=== PATIENT | female | born 1970 | race Caucasian/White ===

== ENCOUNTER 2017-02-17 07:50 | Inpatient (IN) | payer BC, OTHER ==
[~2017-02-17] VITALS: Ht 162.6 cm; Wt 63.5 kg
[2017-02-17 22:57] LABS: *URINE HCG, QUAL NEGATIVE (NEGATIVE)
[2017-02-17 23:00] LABS: *AMPHETAMINE, URINE NEGATIVE (NEGATIVE); *BARBITURATE, URINE NEGATIVE (NEGATIVE); *CANNABINOID, URINE NEGATIVE (NEGATIVE); *COCCAINE, URINE NEGATIVE (NEGATIVE); *OPIATE, URINE NEGATIVE (NEGATIVE); *PHENCYCLIDINE SCREEN,URINE NEGATIVE (NEGATIVE)
[2017-02-17] MEDS ORDERED: ONDANSETRON ODT 4 MG TAB.RAPDIS SL PRN (23:45)
[2017-02-17] MEDS ORDERED: LORAZEPAM 1 MG TABLET PO PRN ×2 (23:45)
[2017-02-17] MEDS ORDERED: MAGNESIUM HYDROXIDE 30 ML LIQUID UDC PO PRN (23:45)
[2017-02-17] MEDS ORDERED: DICYCLOMINE HCL 20 MG TABLET PO PRN (23:45)
[2017-02-17] MEDS ORDERED: THIAMINE HCL 200 MG/2 ML VIAL IM ONE (23:45)
[2017-02-17] MEDS ORDERED: MAG HYDROX/AL HYDROX/SIMETH 30 ML LIQUID UDC PO PRN (23:45)
[2017-02-17] MEDS ORDERED: IBUPROFEN 400 MG TABLET PO PRN (23:45)
[2017-02-17] MEDS ORDERED: LORAZEPAM 2 MG/1 ML VIAL IM PRN (23:45)
[2017-02-17] MEDS ORDERED: MIRALAX 17 GM POWD.PACK PO PRN (23:45)
[2017-02-17] MEDS ORDERED: LOPERAMIDE HCL 2 MG CAPSULE PO PRN ×2 (23:45)
[2017-02-17] MEDS ORDERED: HYDROXYZINE PAMOATE 25 MG CAPSULE PO PRN (23:45)
[2017-02-17] MEDS ORDERED: ACETAMINOPHEN 325 MG TABLET PO PRN (23:45)
[2017-02-17] MEDS ORDERED: PROMETHAZINE HCL 25 MG/1 ML VIAL IM PRN (23:45)
--- NOTE | 2017-02-17 23:45 | NUR ---
ADMISSION NOTE Pt arrived ambulatory to the [facility] 3rd floor (accompanied by [facility] staff) at approximately 2215. Pt is a 46 y/o female ( born on 1970) being admitted for ETOH dependence. Pt has NKA but reported a PMH of Genital Herpes, gall bladder removal, hysterectomy, Lymph node dissection (lateral side of right breast). Pt is and reported having three children. Pt reported "I completed high school. 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 Pt didn't arrive with any medications and denies taking any at home. Pt was then asked about her substance use history including; what substance (s) she uses, the frequency, dose, route, last use, and last amount used. Pt responded " I've been drinking for the past 2 years. I don't use anything else. It started when my kids went off to college. I've just been lonely. I prefer Vodka and I usually drink a pint 4 times a week. [place] the airport before [place] came here (02/17/17). I had probably half a pint of Vodka." Pt was then asked about her treatment history. Pt stated "This is my first real detox. When I was [place] I got a DUI and I had to do a breathalyzer twice a day for one year. That was from December 2015 up until December of this year. Since then I've been binging." Pt's UA was positive for benzodiazepines. Pt stated " I had a doctor's appointment for a cough that ended up being a cold. They gave me amoxicillin and at the time I was anxious so they gave me Ativan, but that was a week ago. I didn't think it would still show up in my urine." Upon assessment pt is a/o x 4 with no changes in LOC. Pt's skin is dry and intact. Pt's breathing is even and unlabored. No SOB noted or reported. Lung auscultations clear in all lobes. PERRLA noted. Hand machine stripper cutter strong bilaterally. Skin turgor indicates adequate hydration. Bowel sounds active in all four quadrants. Abdomen soft and non distended. Pt reported having a bowel movement today (02/17/17). Flatulence is present. Pt denies any pain/discomfort at this time. Pt is encouraged to notify staff of any changes in condition or of any concerns. Pt verbalized an understanding. Vital Signs: BP: 131/94 P:108 T: 98.0 R:160 Pain: 0/10 Oxygen Saturation: 98% CIWA: 2. All safety measures in place; side rails up x 2, bed locked and in low position, and call light within reach. Will continue to monitor.
[2017-02-17] MEDS ORDERED: diphenhydrAMINE 50 MG CAPSULE ONE (23:48)
[2017-02-17] MEDS ORDERED: HYDROXYZINE PAMOATE 25 MG CAPSULE ONE (23:55)
[2017-02-18] VITALS: BP 131/94
[2017-02-18] MEDS: diphenhydrAMINE 50 MG CAPSULE PO PRN ×2 (00:12→21:42)
--- NOTE | 2017-02-18 00:12 | NUR ---
VISTARIL AND BENADRYL PRN ADMINISTRATION Pt stated " Do you think I can get something to help me relax and sleep? I haven't been sleeping very well lately." Vistaril 50 mg PO PRN and Benadryl 50 mg PO PRN was given. Pt was encouraged to notify staff of any changes in condition or of any concerns. Pt verbalized an understanding. All safety measures in place. Will monitor for effectiveness.
--- NOTE | 2017-02-18 01:00 | NUR ---
VISTARIL AND BENADRYL PRN REASSESSMENT Pt is asleep in bed with no signs of discomfort/distress noted. Pt's breathing is even and unlabored. Respirations are 14 breaths per minute. PRNs effective. All safety measures in place. Will continue to monitor.
[2017-02-18 04:00] VITALS: BP 112/74
--- NOTE | 2017-02-18 07:18 | NUR ---
END OF SHIFT NOTE Pt is a 46 y/o female admitted for ETOH dependence. Pt has NKA but reported a PMH of Genital Herpes, gall bladder removal, hysterectomy, and lymph node dissection (lateral side of right breast).Pt is not on a taper at this time, but has PRN medications available for any discomfort/distress. Pt received Vistaril 50 mg and Benadryl 50 mg PO PRN during the shift. Pt slept for a total of 6 hours. Last CIWA: 0 (0400). All safety measures in place; side rails up x 2, bed locked and in low position, and call light within reach. Endorsed to the oncoming nurse.
[2017-02-18] MEDS ORDERED: ONDANSETRON 4 MG/2 ML VIAL IM PRN (07:30)
--- NOTE | 2017-02-18 07:40 | NUR ---
START OF SHIFT NOTE Pt is a 46 yr old female, AA&Ox4. Pt was admitted on 02/17/17 for ETOH dependence and is on PRN's for s/s of w/d. Pt is full code, regular diet and NKA. Pt reports of PMH of Hysterectomy, Cholecystectomy, and Genital Herpes. Pt received Vistaril PRN and Benadryl PRN during the night. Medication was effective and slept for 6 hrs. Last CIWA score was 0. Pt is c/o body tremors at this time. Face is observed flushed. Pt is c/o mild headache /10. Encouraged increase fluid intake. Pt denies any n/v. Skin is intact, warm and moist to touch. Pt is on fall and seizure precautions. Call light is within reach. Will f/u with eMAR.
[2017-02-18 08:20] VITALS: BP 115/85
[2017-02-18] MEDS: MULTIVITAMINS,THERAPEUTIC TABLET PO SCH (08:31)
[2017-02-18] MEDS: THIAMINE HCL 100 MG TABLET PO SCH (08:31)
[2017-02-18] MEDS: FOLIC ACID 1 MG TABLET PO SCH (08:31)
--- NOTE | 2017-02-18 08:31 | NUR ---
PRN MEDICATIONS GIVEN Pt is observed with facial flush and gross tremors. Pt is c/o mild headache. CIWA score was 9. Ativan 1mg PO PRN and Clonidine 0.1mg PO was given as ordered. Encouraged increase fluid intake. Will continue to monitor.
[2017-02-18] MEDS: CLONIDINE HCL 0.1 MG TABLET PO PRN ×2 (08:32→17:07)
[2017-02-18] MEDS ORDERED: TUBERCULIN,PURIF.PROT.DERIV. 5 TU/0.1 ML TEST ID ONE (09:00)
[2017-02-18 09:22] LABS: ALANINE AMINOTRANSFERASE 118 U/L (14-59); ALKALINE PHOSPHATASE 92 U/L (50-136); AMYLASE 56 U/L (25-115); ASPARTATE AMINOTRANSFERASE 194 U/L (15-37); BILIRUBIN,TOTAL 0.8 mg/dL (0.2-1.0); CALCIUM 8.6 mg/dL (8.5-10.1); CARBON DIOXIDE 30 mmol/L (21-32); CHLORIDE 100 mmol/L (98-107); CREATININE 0.6 mg/dL (0.6-1.3); GFR 107 mL/min (>60); GLUCOSE 90 mg/dL (74-106); LIPASE 347 U/L (73-393); MAGNESIUM 1.5 mg/dL (1.8-2.4); POTASSIUM 3.3 mmol/L (3.5-5.1); SODIUM SERUM 140 mmol/L (136-145); TOTAL PROTEIN, SERUM 7.3 g/dL (6.4-8.2); UREA NITROGEN, BLOOD 12 mg/dL (7-18)
[2017-02-18 09:25] LABS: BASOPHILS # (AUTO) 0.1 K/uL (0.0-0.2); BASOPHILS % (AUTO) 1.5 % (0.0-2.0); EOSINOPHILS # (AUTO) 0.2 K/uL (0.0-0.7); EOSINOPHILS % (AUTO) 6.1 % (0.0-7.0); HEMOGLOBIN 13.7 g/dL (12.0-16.0); LYMPHOCYTES # (AUTO) 1.2 K/uL (0.8-4.8); LYMPHOCYTES % (AUTO) 36.1 % (20.5-51.5); MEAN CORPUSCULAR HEMOGLOBIN 33.5 uug (27.0-31.0); MEAN CORPUSCULAR HGB CONC 34 g/dL (32.0-37.0); MONOCYTES # (AUTO) 0.2 K/uL (0.1-1.30); MONOCYTES % (AUTO) 5.4 % (0.0-11.0); NEUTROPHILS # (AUTO) 1.7 K/uL (1.8-8.9); NEUTROPHILS % (AUTO) 50.9 % (38.5-71.5); PLATELET COUNT (AUTO) 225 K/uL (150-450); RED BLOOD CELL COUNT(AUTO) 4.08 MIL/uL (4.20-5.40); RED CELL DISTRIBUTION WIDTH 14.1 % (11.5-14.5); WHITE BLOOD COUNT (AUTO) 3.4 K/uL (4.0-11.2)
--- NOTE | 2017-02-18 09:31 | NUR ---
PRN RE-ASSESSMENT Ativan PRN and Clonidine PRN was effective. CIWA score was 5. Pt is still observed with gross tremors. Encouraged increase fluid intake. MD is made aware. Will continue to monitor.
[2017-02-18 09:35] LABS: ETHANOL < 3 MG/DL (0-0)
[2017-02-18 09:57] LABS: HIV-1 p24 ANTIGEN NON REACTIVE (NONREACTIVE); HIV-1/2 ANTIBODY NON REACTIVE (NONREACTIVE)
[2017-02-18 10:10] LABS: THYROID STIMULATING HORMONE 3.525 mIU/mL (0.358-3.740)
[2017-02-18 11:41] LABS: BAND % (MANUAL) 13 % (0-10); BASOPHILS % (MANUAL) 2 % (0-2); EOSINOPHILS % (MANUAL) 7 % (0-8); LYMPHOCYTES % (MANUAL) 32 % (20-40); METAMYELOCYTES % 1 % (0-1); MONOCYTES % (MANUAL) 3 % (2-10); NEUTROPHILS % (MANUAL) 42 % (42-75)
[2017-02-18 11:42] LABS: PLATELET ESTIMATE ADEQUATE
[2017-02-18 12:00] VITALS: BP 144/101
[2017-02-18] MEDS: LORAZEPAM 1 MG TABLET PO SCH ×3 (12:57→21:42)
[2017-02-18] MEDS ORDERED: POTASSIUM CHLORIDE 20 MEQ TAB.PRT.SR PO ONE (16:15)
[2017-02-18] MEDS ORDERED: MAGNESIUM OXIDE 400 MG TABLET PO ONE (16:15)
[2017-02-18 16:30] VITALS: BP 152/110
--- NOTE | 2017-02-18 17:07 | NUR ---
CLONIDINE PRN GIVEN Pt is observed wtih flushed face and BP 152/110. Clonidine 0.1mg PO PRN was given as ordered. Medication francisco well. Will continue to monitor.
[2017-02-18] MEDS: GABAPENTIN 300 MG CAPSULE PO SCH (17:30)
--- NOTE | 2017-02-18 17:43 | NUR ---
MEDICATION REFUSED Pt refused to take Gabapentin 300mg as scheduled at 1730. Pt educated about the importance of medication compliance and the consequences of not taking the medications, pt verbalized understanding but still refused the medication.
--- NOTE | 2017-02-18 19:10 | NUR ---
END OF SHIFT NOTE Pt is a 46 yr old female, AA&Ox4. Pt was admitted on 02/17/17 for ETOH dependence and started on 3 day Ativan taper as ordered. Medication francisco well. Pt is full code, regular diet and NKA. Pt reports of PMH of Hysterectomy, Cholecystectomy, and Genital Herpes. Pt has been cooperative with care and medication regime. Pt received Ativan 1mg PRN and Clonidine at 0831 and Clonidine at 1743 for s/s of w/d. Medication was effective. Last CIWA score was 7 at 1600. Pt is observed with gross tremors and flushed face. Skin is intact, warm and moist to touch. Pt is on fall and seizure precautions. Call light is within reach.
--- NOTE | 2017-02-18 19:35 | NUR ---
START OF SHIFT NOTE Pt is a 46 y/o female admitted for ETOH dependence. Pt has NKA but reported a PMH of Genital Herpes, gall bladder removal, hysterectomy, and lymph node dissection (lateral side of right breast). Per day shift nurse pt was placed on a 3 day Ativan taper ( day 1) . Pt received Clonidine 0.1 PO PRN (will reassess) during the day shift. Last CIWA: 7 (1600). At this time pt is calm, cooperative, and compliant with plan of care. Pt denies any pain/discomfort at this time. Pt was encouraged to notify staff of any changes in condition or of any concerns. Pt verbalized an understanding. All safety measures in place; side rails up x 2, bed locked and in low position, and call light within reach. Will continue to monitor.
--- NOTE | 2017-02-18 19:45 | NUR ---
CLONIDINE PRN REASSESSMENT Pt's blood pressure is still elevated at this time.(132/103). Pt denies any discomfort/distress, headache, blurred vision, dizziness, nausea, or vomiting. Charge nurse contacted inspection clerk MD to notify him of the pt's current blood pressure. MD gave orders to continue monitoring. Pt encouraged to increase fluids and to notify staff of any changes in condition or of any concerns. Pt verbalized an understanding. All safety measures in place. Will continue to monitor.
[2017-02-18 20:00] VITALS: BP 132/103
--- NOTE | 2017-02-18 21:42 | NUR ---
BENADRYL PRN ADMINISTRATION Pt stated " Can I have something to help me sleep?" Benadryl 50 mg PO PRN was given. Pt was encouraged to notify staff of any changes in condition or of any concerns. Pt verbalized an understanding. All safety measures in place. Will monitor for effectiveness.
--- NOTE | 2017-02-18 22:40 | NUR ---
BENADRYL PRN REASSESSMENT Pt is asleep in bed with no signs of discomfort/distress noted. Pt's breathing is even and unlabored. Respirations are 16 breaths per minute. PRN effective. All safety measures in place. Will continue to monitor.
--- NOTE | 2017-02-19 | NUR ---
CIWA AND VITALS REFUSED Pt refused to be assessed and have vitals taken at this time. Pt was encouraged x 3 with risks and benefits explained but the pt still refused. All safety measures in place. Will continue to monitor. Addendum: 02/19/17 at 0312 by DAVID HENDERSON LVN Amended: Links added.
[2017-02-19 04:00] VITALS: BP 122/89
--- NOTE | 2017-02-19 07:05 | NUR ---
Start of Shift Notes: Received patient in her room. Alert and oriented x 4. Verbally responsive. Appears anxious and tremulous at this time. Able to make his needs known. Respirations even and unlabored. No SOB noted. Skin warm and dry to touch. Abdomen soft and non-distended. BS (+) in all 4 quadrants. No complains of N/V/D or constipation noted. Bladder non-distended. No complains of dysuria noted. Voids independently. Ambulatory ad briana with steady gait. Patient is a 46 year old female admitted for ETOH dependence who was placed on a 3-day Subutex taper as ordered. No adverse reactions noted. Has past medical hx of hysterectomy and cholecystectomy. NKA. FULL CODE. Regular diet. On fall and seizure precautions. Educated patient on the current plan of care for the day and the medication regimen. Encouraged oral fluid intake and encouraged group participation to learn new skills to prevent relapse. Will continue to monitor closely.
--- NOTE | 2017-02-19 07:31 | NUR ---
END OF SHIFT NOTE Pt is a 46 y/o female admitted for ETOH dependence. Pt has NKA but reported a PMH of Genital Herpes, gall bladder removal, hysterectomy, and lymph node dissection (lateral side of right breast).Pt continues on 3 day Ativan taper (day 2) and is tolerating medication well with no s/e or a/r reported. Pt received Benadryl 50 mg PO PRN during the shift. Pt slept for a total of 9 hours. Last CIWA: 0 (0400). All safety measures in place; side rails up x 2, bed locked and in low position, and call light within reach. Endorsed to the oncoming nurse.
[2017-02-19 07:46] LABS: BASOPHILS # (AUTO) 0.1 K/uL (0.0-0.2); BASOPHILS % (AUTO) 1.5 % (0.0-2.0); EOSINOPHILS # (AUTO) 0.3 K/uL (0.0-0.7); EOSINOPHILS % (AUTO) 7.9 % (0.0-7.0); HEMOGLOBIN 13.4 g/dL (12.0-16.0); LYMPHOCYTES # (AUTO) 1.5 K/uL (0.8-4.8); LYMPHOCYTES % (AUTO) 39.3 % (20.5-51.5); MEAN CORPUSCULAR HGB CONC 34 g/dL (32.0-37.0); MEAN CORPUSCULAR VOLUME 98.7 fL (81.0-99.0); MONOCYTES # (AUTO) 0.3 K/uL (0.1-1.30); MONOCYTES % (AUTO) 6.8 % (0.0-11.0); NEUTROPHILS # (AUTO) 1.7 K/uL (1.8-8.9); NEUTROPHILS % (AUTO) 44.5 % (38.5-71.5); PLATELET COUNT (AUTO) 191 K/uL (150-450); RED BLOOD CELL COUNT(AUTO) 4.05 MIL/uL (4.20-5.40); WHITE BLOOD COUNT (AUTO) 3.9 K/uL (4.0-11.2)
[2017-02-19 08:00] VITALS: BP 139/96
[2017-02-19 08:08] LABS: CALCIUM 8.7 mg/dL (8.5-10.1); CREATININE 0.6 mg/dL (0.6-1.3); MAGNESIUM 1.9 mg/dL (1.8-2.4); PHOSPHOROUS 4.7 mg/dL (2.5-4.9); POTASSIUM 4.1 mmol/L (3.5-5.1)
[2017-02-19] MEDS: FOLIC ACID 1 MG TABLET PO SCH (08:26)
[2017-02-19] MEDS: LORAZEPAM 1 MG TABLET PO SCH ×3 (08:26→21:45)
[2017-02-19] MEDS: GABAPENTIN 300 MG CAPSULE PO SCH ×3 (08:26→21:44)
[2017-02-19] MEDS: MULTIVITAMINS,THERAPEUTIC TABLET PO SCH (08:26)
[2017-02-19] MEDS: THIAMINE HCL 100 MG TABLET PO SCH (08:26)
[2017-02-19 12:00] VITALS: BP_SYST 151; BP_DIAS 102; BP_DIAS 112
[2017-02-19] MEDS: CLONIDINE HCL 0.1 MG TABLET PO PRN ×2 (13:01→21:45)
--- NOTE | 2017-02-19 13:01 | NUR ---
Clonidine 0.1mg PO given: Patient noted with BP 158/112. Denies any complains of headache, chest pain, dizziness, blurred vision or lightheadedness. Patient appears mildly anxious. Redirection provided. Medicated patient with Clonidine 0.1mg PO as ordered. Will monitor for effectiveness.
[2017-02-19 14:01] VITALS: BP 147/90
--- NOTE | 2017-02-19 14:01 | NUR ---
Re-assessment: Patient's BP 147/90. Less anxiety noted. PRN Clonidine was effective.
[2017-02-19 14:06] LABS: HCV AB <0.1 s/co ratio (0.0-0.9); HEPATITIS B CORE AB, IgM Negative (Negative); HEPATITIS B SURFACE AG Negative (Negative)
[2017-02-19 16:00] VITALS: BP 136/91
--- NOTE | 2017-02-19 17:16 | NUR ---
Psych MD Communication: Notified Dr. Lafleur of patient's concern regarding Benadryl. Patient states that Benadryl does not work well on her. Requested for another medication. Notified Dr. Lafleur and orders were received. MD unable to enter orders at this time, as he is driving. Orders noted and carried out.
--- NOTE | 2017-02-19 18:42 | NUR ---
End of Shift Notes: Patient is 46 year old female admitted for ETOH dependence who was placed on a 3-day Ativan taper as ordered. No adverse reactions noted. Has past medical hx of hysterectomy, lymph node dissection, cholecystectomy and gentital herpes. NKA. FULL CODE. Regular diet. On fall and seizure precautions. VS monitored closely q 4 hours. Noted with increase in BP. Medicated patient with Clonidine 0.1mg PO as ordered with help after 1 hour. Withdrawal symptoms were closely monitored. Patient presented with moderate gross tremors, anxiety and sweats. Per patient Ativan has been helping her with her withdrawal symptoms. Initial CIWA 6, Last CIWA 4. Compliant with care and treatment. Participated in group and therapy sessions. Safety precautions in place. Call light kept in reach. All needs met and attended. Will continue to monitor closely.
--- NOTE | 2017-02-19 19:46 | NUR ---
START OF SHIFT NOTE Pt is a 46 y/o female admitted for ETOH dependence. Pt has NKA but reported a PMH of Genital Herpes, gall bladder removal, hysterectomy, and lymph node dissection (lateral side of right breast). Per day shift nurse pt continues on a 3 day Ativan taper ( day 2) and is tolerating medication well, with no s/e or a/r reported. Pt received Clonidine 0.1 PO PRN during the day shift. Last CIWA: 4 (1600). At this time pt is calm, cooperative, and compliant with plan of care. Pt denies any pain/discomfort at this time. Pt was encouraged to notify staff of any changes in condition or of any concerns. Pt verbalized an understanding. All safety measures in place; side rails up x 2, bed locked and in low position, and call light within reach. Will continue to monitor.
[2017-02-19 20:00] VITALS: BP 155/107
--- NOTE | 2017-02-19 21:44 | NUR ---
CLONIDINE PRN ADMINISTRATION Pt's blood pressure is notably high (155/107). Pt denies any pain/discomfort, headache, blurred vision, dizziness, nausea or vomiting at this time. Pt was given Clonidine 0.1 mg PO PRN. Pt was encouraged to notift staff of any changes in condition or of any concerns. Pt verbalized an understanding. All safety measures in place. Will monitor for effectiveness.
--- NOTE | 2017-02-19 22:45 | NUR ---
CLONIDINE PRN REASSESSMENT Pt's blood pressure is now 122/87. PRN effective. Pt is encouraged to notify staff of any changes in condition or of any concerns. Pt verbalized an understanding. All safety measures in place. Will continue to monitor.
[2017-02-19] MEDS: TRAZODONE 50 MG TABLET PO PRN (22:50)
--- NOTE | 2017-02-19 22:55 | NUR ---
TRAZODONE PRN ADMINISTRATION Pt stated " Can I have my sleeper now?" Trazodone 50 mg PO PRN was given. Pt was encouraged to notify staff of any changes in condition or of any concerns. Pt verbalized an understanding. All safety measures in place. Will monitor for effectiveness.
--- NOTE | 2017-02-19 23:50 | NUR ---
TRAZODONE PRN REASSESSMENT Pt is sleeping in bed with no signs of discomfort/distress noted. Breathing is even and unlabored. Respirations are 14 breaths per minute. PRN effective. All safety measures in place. Will continue to monitor.
--- NOTE | 2017-02-20 | NUR ---
CIWA AND VITALS REFUSED Pt refused to be assessed and have vitals taken at this time. Pt was encouraged x 3 with risks and benefits explained but the pt still refused. All safety measures in place. Will continue to monitor. Addendum: 02/20/17 at 0541 by DAVID HENDERSON LVN Amended: Links added.
--- NOTE | 2017-02-20 04:00 | NUR ---
CIWA AND VITALS REFUSED Pt refused to be assessed and have vitals taken at this time. Pt was encouraged x 3 with risks and benefits explained but the pt still refused. All safety measures in place. Will continue to monitor Addendum: 02/20/17 at 0543 by DAVID HENDERSON LVN Amended: Links added.
--- NOTE | 2017-02-20 07:27 | NUR ---
END OF SHIFT NOTE Pt is a 46 y/o female admitted for ETOH dependence. Pt has NKA but reported a PMH of Genital Herpes, gall bladder removal, hysterectomy, and lymph node dissection (lateral side of right breast).Pt continues on 3 day Ativan taper (day 3) and is tolerating medication well with no s/e or a/r reported. Pt received Trazodone 50 mg PO PRN and Clonidine 0.1 mg PO PRN during the shift. Pt slept for a total of 8 hours. Last CIWA: 3 (1999). All safety measures in place; side rails up x 2, bed locked and in low position, and call light within reach. Endorsed to the oncoming nurse.
--- NOTE | 2017-02-20 07:40 | NUR ---
START OF SHIFT Pt is a 46 yr old female, AA&Ox4. Pt was admitted on 02/17/17 for ETOH dependence and is on 3 day Ativan taper. Medication francisco well. Pt is full code, regular diet and NKA. Pt reports of PMH of Hysterectomy, Cholecystectomy, and Genital Herpes. Pt received Clonidine PRN for increase BP. Medication was effective.Pt slept for 8 hrs during the night. Last CIWA score was 3. Pt is currently in bed resting with respirations even and unlabored. No acute distress noted. Skin is intact, warm and dry to touch. Pt denies any n/v. Pt is on fall and seizure precautions. Call light is within reach. Will continue to monitor.
[2017-02-20 08:00] VITALS: BP 101/69
[2017-02-20] MEDS: LORAZEPAM 1 MG TABLET PO SCH ×2 (09:07→21:47)
[2017-02-20] MEDS: MULTIVITAMINS,THERAPEUTIC TABLET PO SCH (09:07)
[2017-02-20] MEDS: GABAPENTIN 300 MG CAPSULE PO SCH ×3 (09:07→21:47)
[2017-02-20] MEDS: THIAMINE HCL 100 MG TABLET PO SCH (09:08)
[2017-02-20] MEDS: FOLIC ACID 1 MG TABLET PO SCH (09:08)
[2017-02-20 12:00] VITALS: BP 122/72
[2017-02-20 16:00] VITALS: BP 154/100
--- NOTE | 2017-02-20 19:22 | NUR ---
END OF SHIFT Pt is a 46 yr old female, AA&Ox4. Pt was admitted on 02/17/17 for ETOH dependence and is on 3 day Ativan taper. Medication francisco well. Pt is full code, regular diet and NKA. Pt reports of PMH of Hysterectomy, Cholecystectomy, and Genital Herpes. Pt has been cooperative with medication regiem and plan of care during the day. No PRN's were given during the day. Last CIWA score was 3 at 1600. No acute distress noted. Skin is intact, warm and dry to touch. Fine tremors are seen. Pt denies any n/v. Encouraged increase fluid intake. Pt is on fall and seizure precautions. Call light is within reach.
[2017-02-20 20:00] VITALS: BP 147/105
--- NOTE | 2017-02-20 20:00 | NUR ---
START OF SHIFT Received 46 year old female patient admitted on 02/17/17 for ETOH dependency. Pt is full code with NKElisa. She reports a PMHx of hysterectomy, lymph node dissection on right breast, cholecystectomy and genital herpes. She reports using ETOH 375mL four times per week for 2 years. Last dose was 188 mL on 02/17/17. Pt placed on 3 day Ativan taper started on 02/18/17 and tolerating well. Per endorsement, pt did not receive or request PRN medications. Pt is alert and oriented x4, breathing even and unlabored, safety measures in place. Will continue to monitor.
[2017-02-20] MEDS: CLONIDINE HCL 0.1 MG TABLET PO PRN (21:48)
[2017-02-20] MEDS: TRAZODONE 50 MG TABLET PO PRN (21:48)
--- NOTE | 2017-02-20 21:48 | NUR ---
PRN CLONIDINE/TRAZODONE Pt noted with increased BP of 147/105 HR: 88. Pt complains of slight headache /, refuses pain medication for headache. Pt complains of inability to fall asleep. PRN Trazodone administered as ordered. Breathing even and unlabored, safety measures in place. Will monitor effectiveness.
[2017-02-20 22:48] VITALS: BP 115/81
--- NOTE | 2017-02-20 22:48 | NUR ---
PRN CLONIDINE/TRAZODONE REASSESSMENT PRN Clonidine effective. BP decreased to 115/81 HR: 82. PRN Trazodone ineffective at this time. Pt still awake but verbalizes that she's starting to feel sleepy. Breathing even and unlabored, safety measures in place. Will continue to monitor.
[2017-02-21] VITALS (7 sets, daily range): BP systolic 94–151; BP diastolic 56–104
--- NOTE | 2017-02-21 07:12 | NUR ---
END OF SHIFT Pt remained stable and had uneventful night. She received PRN Clonidine d/t increased BP at start of shift. PRN medication was effective in decreasing her BP. And PRN Trazodone d/t inability to sleep. PRN medication was effective. Still presents with fine tremors. Last CIWA: 2 @ 0400. She slept a total of 7 hrs, Intake: 1,000mL Void:x2 BM:0. Breathing is even and unlabored. Pt safe with bed locked in lowest position, sdie rails up x2 and call light within reach. Endorsed to oncoming nurse.
--- NOTE | 2017-02-21 07:45 | NUR ---
START OF SHIFT Pt is a 46 yr old female, AA&Ox4. Pt was admitted on 02/17/17 for ETOH dependence and has completed 3 day Ativan taper. Medication fracnisco well. Pt is full code, regular diet and NKA. Pt reports of PMH of Hysterectomy, Cholecystectomy, and Genital Herpes. Pt received Clonidine PRN and Trazodone PRN during the night. Medication was effective.Pt slept for 7 hrs during the night. Last CIWA score was 2. Pt is currently in bed resting with respirations even and unlabored. No acute distress noted. Skin is intact, warm and dry to touch. Pt denies any n/v. Pt is on fall and seizure precautions. Call light is within reach. Will continue to monitor.
[2017-02-21 08:22] LABS: ALBUMIN 3.5 g/dL (3.4-5.0); BILIRUBIN,DIRECT 0.2 mg/dL (0.0-0.2); BILIRUBIN,TOTAL 0.6 mg/dL (0.2-1.0); TOTAL PROTEIN, SERUM 6.6 g/dL (6.4-8.2)
[2017-02-21] MEDS: FOLIC ACID 1 MG TABLET PO SCH (09:16)
[2017-02-21] MEDS: MULTIVITAMINS,THERAPEUTIC TABLET PO SCH (09:16)
[2017-02-21] MEDS: GABAPENTIN 300 MG CAPSULE PO SCH ×3 (09:16→21:32)
[2017-02-21] MEDS: THIAMINE HCL 100 MG TABLET PO SCH (09:17)
[2017-02-21 13:35] LABS: *AMPHETAMINE, URINE NEGATIVE (NEGATIVE); *BARBITURATE, URINE NEGATIVE (NEGATIVE); *CANNABINOID, URINE NEGATIVE (NEGATIVE); *COCCAINE, URINE NEGATIVE (NEGATIVE); *OPIATE, URINE NEGATIVE (NEGATIVE); *PHENCYCLIDINE SCREEN,URINE NEGATIVE (NEGATIVE)
[2017-02-21] MEDS ORDERED: DICY20TA28 PO (15:53)
[2017-02-21] MEDS ORDERED: TRAZ-144 PO (15:53)
[2017-02-21] MEDS ORDERED: CLON0.1T14 PO (15:53)
[2017-02-21] MEDS ORDERED: HYDR-3895 PO (15:53)
[2017-02-21] MEDS ORDERED: Gabapentin PO (15:53)
--- NOTE | 2017-02-21 16:00 | NUR ---
NSG NOTES Pt is to be discharged tomorrow to [facility]. Urine Drug screen is complete. Pt states she is ready to go. Pt continues to be observed with fine tremors but denies any other withdrawal symptoms. Encouraged increase fluid intake. CIWA score is 2 at 1600. Will continue to monitor.
--- NOTE | 2017-02-21 19:04 | NUR ---
END OF SHIFT Pt is a 46 yr old female, AA&Ox4. Pt was admitted on 02/17/17 for ETOH dependence and completed 3 day Ativan taper. Medication francisco well and effective. Pt has been cooperative with medication regime and plan of care during the day. Pt has been attending group sessions and activities without difficulty. Pt appears to be happy and observed smiling and having conversations with other patients. No PRN's were given during the day. Last CIWA score was 2 at 1600. Skin is intact, warm and dry to touch. Fine tremors are seen. Pt denies any n/v. Encouraged increase fluid intake. Pt is to be discharged tomorrow to [facility]. Urine drug scree is complete. Pt is on fall and seizure precautions. Call light is within reach.
--- NOTE | 2017-02-21 19:15 | NUR ---
START OF SHIFT Received 46 year old female patient admitted on 02/17/17 for ETOH dependency. Pt is full code with NKA. She reports a PMHx of hysterectomy, lymph node dissection on right breast, cholecystectomy and genital herpes. Pt has completed her 3 day Ativan taper started on 02/18/17 and tolerated well. She is scheduled to be DC tomorrow to [facility]. Per endorsement, pt did not receive or request PRN medications. Pt is alert and oriented x4, breathing even and unlabored, safety measures in place. Will continue to monitor.
[2017-02-21] MEDS: CLONIDINE HCL 0.1 MG TABLET PO PRN (21:33)
[2017-02-21] MEDS: TRAZODONE 50 MG TABLET PO PRN (21:33)
--- NOTE | 2017-02-21 21:33 | NUR ---
PRN CLONIDINE/TRAZODONE Pt noted with increased BP of 144/104 HR: 91. Complains of slight dizziness. Pt also complains of inability to fall asleep. PRN Clonidine and Trazodone administered as ordered. Breathing even and unlabored, safety measures in place. Will continue to monitor effectiveness.
--- NOTE | 2017-02-21 22:33 | NUR ---
PRN CLONIDINE/TRAZODONE REASSESSMENT PRN Clonidine effective. Pt with decreased BP of 101/63, HR:78. PRN Trazodone somewhat effective at this time. Pt noted to be lying in bed drowsy and reports she is about to fall asleep. Breathing is even and unlabored, safety measures in place. Will continue to monitor.
[2017-02-22] VITALS: BP 95/63
[2017-02-22 04:00] VITALS: BP 95/51
--- NOTE | 2017-02-22 07:21 | NUR ---
END OF SHIFT Pt is stable and had an uneventful night. She received PRN medications of clonidine and Trazodone d/t increased BP at start of shift and inability to fall asleep. PRN medications were effective. She is scheduled to be DC today to [facility]. She slept a total of 6 hrs, Intake:1565 mL Void: x2 BM:0 CIWA:2 at 0400. Pt is alert and oriented x4, breathing is even and unlabored. Safety measures in place. Endorsed to oncoming shift.
--- NOTE | 2017-02-22 07:25 | NUR ---
Start of Shift Report from night nurse: pt is 46 y/o female her for Etoh r/t multiple types of alcohol with 375mg 4x/wk for 2 years and UDS positive for benzo's; 3 day Ativan taper ordered. Pt is a full code, NKA, Regular Diet, Fall and seizure precautions. HHx: hysterectomy, lymph node dissections of right breast, cholecystectomy, and HSV-2. V/S stable with elevated BP 144/104 and PRN clonidine given. Skin is intact. Pt is to be d/c'd today. PRN Vistaril and trazodone given last night. Pt is asleep in room. Last CIWA 2. Will cont. to monitor the pt.
[2017-02-22 08:15] VITALS: BP 134/96
[2017-02-22] MEDS: FOLIC ACID 1 MG TABLET PO SCH (08:39)
[2017-02-22] MEDS: THIAMINE HCL 100 MG TABLET PO SCH (08:39)
[2017-02-22] MEDS: GABAPENTIN 300 MG CAPSULE PO SCH (08:39)
[2017-02-22] MEDS: MULTIVITAMINS,THERAPEUTIC TABLET PO SCH (08:40)
[2017-02-22 08:46] VITALS: BP 134/96
[2017-02-22] MEDS: CLONIDINE HCL 0.1 MG TABLET PO PRN (08:46)
--- NOTE | 2017-02-22 08:48 | NUR ---
PRN Medication Administration Pt is excited in room re: getting d/c with BP 134/96 HR 96 with mild tremors present; PRN Clonidine given with scheduled medications. Will reassess 30 mins to 1H before d/c pt.
--- NOTE | 2017-02-22 08:53 | NUR ---
Discharge Pt is A&Ox4, ambulatory independently. Features symmetrical, PERRLA 3, no dizziness or BURNETT present. Pt denies chest pain, V/S stable with reassessment of Clonidine 0.1mg is effective since the pt's BP decreased to 128/80 and HR 88 in sitting position. No SOB present. Pt given belongings, prescriptions, d/c summary packet. Pt is chaperoned to the parking lot to the [facility] and d/c'ed to [facility].
[2017-02-25 15:42] LABS: *BENZODIAZEPINES Positive (.); *NORDIAZEPAM Positive (.); *OXAZEPAM Negative (Cutoff=300)
== END 2017-02-22 09:53 | disposition home or self-care (01) | DRG 895 ==
LOC: SRC 21:33
PROVIDERS: ADMIT Internal Medicine; ATTEND Internal Medicine
PROC: HZ2ZZZZ Detoxification Services for Substance Abuse Treatment (ICD-10-PCS; principal; 2017-02-17)
PROC: HZ41ZZZ Group Counseling for Substance Abuse Treatment, Behavioral (ICD-10-PCS; 2017-02-18)
PROC: HZ31ZZZ Individual Counseling for Substance Abuse Treatment, Behavioral (ICD-10-PCS; 2017-02-19)
DX: F10.230 Alcohol dependence with withdrawal, uncomplicated (principal); K70.10 Alcoholic hepatitis without ascites; Y90.9 Presence of alcohol in blood, level not specified; Z65.3 Problems related to other legal circumstances; Z90.49 Acquired absence of other specified parts of digestive tract; Z90.710 Acquired absence of both cervix and uterus; E87.6 Hypokalemia; E83.42 Hypomagnesemia; Z81.1 Family history of alcohol abuse and dependence; D72.819 Decreased white blood cell count, unspecified
CPT/HCPCS: 36415; 70030-TC; 80307; 80346; 83690; 83735; 84100; 84443; 84703; 85025; 86580; 86592; 86705; 86803; 87340; 87806; A4663; G6040-TC; J3411; Q0163